=== PATIENT | female | born 1960 | race Caucasian/White ===

== ENCOUNTER 2018-07-30 17:50 | Emergency (ER) | payer BC ==
[~2018-07-30 17:50] MED LIST: ORAL BIRTH CONTROL
--- NOTE | 2018-07-30 18:02 | ER Report ---
History and Physical Time Seen By MD: 18:02 Allergies: Coded Allergies: Penicillins (Verified Allergy, Unknown, RASH, 07/29/14) Home Meds Reported Medications [Oral Control] No Conflict Check 07/29/14 Hx Smoking: No Depart Departure Condition: Stable Disposition: HOME OR SELF-CARE LANE MALIN CONVEYOR SYSTEM OPERATOR-BC Jul 30, 2018 18:02
--- NOTE | 2018-07-30 18:07 | ER Report ---
History and Physical Time Seen By MD: 18:07 HPI/ROS CHIEF COMPLAINT: Left groin pain HISTORY OF PRESENT ILLNESS: This is a 57-year-old female who presents to the emergency department for left groin pain. Patient states that around 9:00 this morning while sitting at a desk, she developed some left groin pain. Patient states the pain has increased in intensity today, it is now radiating a little bit to her back. It is more pinpoint in the groin, she also has some mild numbness to the front of her left quadricep. She denies fevers or chills. No nausea or vomiting. No hip pain, no knee pain no recent illnesses. No chest pain or short of breath REVIEW OF SYSTEMS: Respiratory: No cough, no dyspnea. Cardiovascular: No chest pain, no palpitations. Gastrointestinal: No vomiting, no abdominal pain. Musculoskeletal: As above. Allergies: Coded Allergies: Penicillins (Verified Allergy, Unknown, RASH, 07/30/18) Home Meds Active Scripts Cyclobenzaprine Hcl (CYCLOBENZAPRINE HCL) 10 Mg Tablet, 5-10 MG PO TID PRN for MUSCLE SPASMS, #9 TAB Prov:LANE MALIN HYDROLOGIST-BC 07/30/18 Discontinued Reported Medications [Oral Control] No Conflict Check 07/29/14 Past Medical/Surgical History The patient has a past medical and surgical history of umbilical hernia, scoliosis, post menopause. morbidly obese. Reviewed Nurses Notes: Yes Hx Smoking: No Constitutional Vital Sign - Last 24 Hours 07/30/18 07/30/18 07/30/18 07/30/18 18:07 18:07 18:20 18:30 Temp 98.0 Pulse 82 93 Resp 14 B/P (MAP) 128/76 (93) 128/78 110/62 (78) Pulse Ox 93 92 O2 Delivery Room Air 07/30/18 07/30/18 07/30/18 07/30/18 18:35 19:00 19:05 19:20 Pulse 86 80 B/P (MAP) 125/65 (85) Pulse Ox 91 90 91 07/30/18 19:30 B/P (MAP) 127/65 (85) Physical Exam General Appearance: The patient is alert, has no immediate need for airway protection and no current signs of toxicity. Eyes: Pupils equal and round no injection. Respiratory: Chest is non tender, lungs are clear to auscultation. Cardiac: regular rate and rhythm. Gastrointestinal: Abdomen is obese, soft and non tender, no masses, bowel sounds normal. Musculoskeletal: Neck: Neck is supple and non tender. Extremities painful left groin with palpation, no deformities, no crepitus no palpable hernia. No discomfort with the right leg raise. Increased discomfort and weakness to the left leg with straight leg raise. No erythema or heat radiating from the left hip. Skin: No rashes or lesions. DIFFERENTIAL DIAGNOSIS: After history and physical exam differential diagnosis was considered for septic arthritis, bursitis, hernia, urinary tract infection, DVT, muscle strain, radiculopathy. Medical Decision Making Data Points Result Diagram: 07/30/18 1831 07/30/18 1831 Laboratory Hematology Test 07/30/18 18:31 07/30/18 18:51 Red Blood Count 4.88 M/uL (4.17-5.56) Mean Corpuscular Volume 84.0 fL (80.0-96.0) Mean Corpuscular Hemoglobin 28.1 pg (26.0-33.0) Mean Corpuscular Hemoglobin Concent 33.4 g/dL (32.0-36.0) Red Cell Distribution Width 14.2 % (11.5-14.5) Mean Platelet Volume 7.1 fL (7.2-11.1) Neutrophils (%) (Auto) 67.0 % (39.4-72.5) Lymphocytes (%) (Auto) 24.6 % (17.6-49.6) Monocytes (%) (Auto) 7.1 % (4.1-12.4) Eosinophils (%) (Auto) 0.8 % (0.4-6.7) Basophils (%) (Auto) 0.5 % (0.3-1.4) Nucleated RBC Relative Count (auto) 0.0 /100WBC Neutrophils # (Auto) 6.5 K/uL (2.0-7.4) Lymphocytes # (Auto) 2.4 K/uL (1.3-3.6) Monocytes # (Auto) 0.7 K/uL (0.3-1.0) Eosinophils # (Auto) 0.1 K/uL (0.0-0.5) Basophils # (Auto) 0.0 K/uL (0.0-0.1) Nucleated RBC Absolute Count (auto) 0.00 K/uL Sodium Level 138 mmol/L (137-145) Potassium Level 3.8 mmol/L (3.5-5.0) Chloride Level 110 mmol/L (98-107) Carbon Dioxide Level 24 mmol/L (22-31) Blood Urea Nitrogen 13 mg/dl (7-18) Creatinine 0.60 mg/dl (0.52-1.04) Glomerular Filtration Rate Calc > 60.0 Random Glucose 90 mg/dl (75-110) Calcium Level 9.1 mg/dl (8.4-10.2) Total Bilirubin 0.4 mg/dl (0.2-1.3) Aspartate Amino Transf (AST/SGOT) 25 U/L (0-35) Alanine Aminotransferase (ALT/SGPT) 28 U/L (0-56) Alkaline Phosphatase 89 U/L (0-126) C-Reactive Protein 0.8 mg/dl (<1.0) Total Protein 7.3 g/dl (6.3-8.2) Albumin 3.9 g/dl (3.5-5.0) Urine Color Straw Urine Clarity Clear Urine pH 5.0 pH (4.8-9.5) Urine Specific [place] 1.006 Urine Protein Negative mg/dL (NEGATIVE) Urine Glucose (UA) Negative mg/dL (NEGATIVE) Urine Ketones Trace mg/dL (NEGATIVE) Urine Blood Moderate (NEGATIVE) Urine Nitrite Negative (NEGATIVE) Urine Bilirubin Negative (NEGATIVE) Urine Urobilinogen Negative mg/dL (0.2-1.9) Urine Leukocyte Esterase Negative (NEGATIVE) Urine RBC 1 /HPF (0-2/HPF) Urine WBC 1 /HPF (0-5/HPF) Urine Squamous Epithelial Cells None /LPF (</=FEW) Urine Bacteria Few /HPF (NONE-FEW) Urine Mucus None /HPF (NONE-FEW) Chemistry Test 07/30/18 18:31 07/30/18 18:51 White Blood Count 9.8 k/uL (4.5-11.0) Red Blood Count 4.88 M/uL (4.17-5.56) Hemoglobin 13.7 g/dL (12.0-16.0) Hematocrit 41.0 % (34.0-47.0) Mean Corpuscular Volume 84.0 fL (80.0-96.0) Mean Corpuscular Hemoglobin 28.1 pg (26.0-33.0) Mean Corpuscular Hemoglobin Concent 33.4 g/dL (32.0-36.0) Red Cell Distribution Width 14.2 % (11.5-14.5) Platelet Count 313 K/uL (150-450) Mean Platelet Volume 7.1 fL (7.2-11.1) Neutrophils (%) (Auto) 67.0 % (39.4-72.5) Lymphocytes (%) (Auto) 24.6 % (17.6-49.6) Monocytes (%) (Auto) 7.1 % (4.1-12.4) Eosinophils (%) (Auto) 0.8 % (0.4-6.7) Basophils (%) (Auto) 0.5 % (0.3-1.4) Nucleated RBC Relative Count (auto) 0.0 /100WBC Neutrophils # (Auto) 6.5 K/uL (2.0-7.4) Lymphocytes # (Auto) 2.4 K/uL (1.3-3.6) Monocytes # (Auto) 0.7 K/uL (0.3-1.0) Eosinophils # (Auto) 0.1 K/uL (0.0-0.5) Basophils # (Auto) 0.0 K/uL (0.0-0.1) Nucleated RBC Absolute Count (auto) 0.00 K/uL Glomerular Filtration Rate Calc > 60.0 Calcium Level 9.1 mg/dl (8.4-10.2) Total Bilirubin 0.4 mg/dl (0.2-1.3) Aspartate Amino Transf (AST/SGOT) 25 U/L (0-35) Alanine Aminotransferase (ALT/SGPT) 28 U/L (0-56) Alkaline Phosphatase 89 U/L (0-126) C-Reactive Protein 0.8 mg/dl (<1.0) Total Protein 7.3 g/dl (6.3-8.2) Albumin 3.9 g/dl (3.5-5.0) Urine Color Straw Urine Clarity Clear Urine pH 5.0 pH (4.8-9.5) Urine Specific [place] 1.006 Urine Protein Negative mg/dL (NEGATIVE) Urine Glucose (UA) Negative mg/dL (NEGATIVE) Urine Ketones Trace mg/dL (NEGATIVE) Urine Blood Moderate (NEGATIVE) Urine Nitrite Negative (NEGATIVE) Urine Bilirubin Negative (NEGATIVE) Urine Urobilinogen Negative mg/dL (0.2-1.9) Urine Leukocyte Esterase Negative (NEGATIVE) Urine RBC 1 /HPF (0-2/HPF) Urine WBC 1 /HPF (0-5/HPF) Urine Squamous Epithelial Cells None /LPF (</=FEW) Urine Bacteria Few /HPF (NONE-FEW) Urine Mucus None /HPF (NONE-FEW) Urinalysis Test 07/30/18 18:51 Urine Color Straw Urine Clarity Clear Urine pH 5.0 pH (4.8-9.5) Urine Specific [place] 1.006 Urine Protein Negative mg/dL (NEGATIVE) Urine Glucose (UA) Negative mg/dL (NEGATIVE) Urine Ketones Trace mg/dL (NEGATIVE) Urine Blood Moderate (NEGATIVE) Urine Nitrite Negative (NEGATIVE) Urine Bilirubin Negative (NEGATIVE) Urine Urobilinogen Negative mg/dL (0.2-1.9) Urine Leukocyte Esterase Negative (NEGATIVE) Urine RBC 1 /HPF (0-2/HPF) Urine WBC 1 /HPF (0-5/HPF) Urine Squamous Epithelial Cells None /LPF (</=FEW) Urine Bacteria Few /HPF (NONE-FEW) Urine Mucus None /HPF (NONE-FEW) EKG/Imaging Imaging Location: [facility] Patient: Meeta Newton : 1960 Visit/Account:[id number] Date of Sevice: 07/30/2018 INDICATION: left groin pain. DATE: 07/30/2018 6:53 PM. TECHNIQUE: HIP LEFT COMPARISON: None FINDINGS: Mild to moderate degenerative findings at the hips and pubic symphysis. No evidence of fracture or dislocation. IMPRESSION: No acute osseous abnormality. Report Dictated By: Grazyna Zarate MD at 07/30/2018 6:53 PM Report E-Signed By: Grazyna Zarate MD at 07/30/2018 6:56 PM WSN:[email or web address] ED Course/Re-evaluation ED Course The patient was admitted to room. A history and physical were obtained. Differential diagnoses were considered. A CBC, CRP and UA were collected. Lab studies unremarkable, negative CRP. Negative left hip x-ray. An ultrasound of the left lower extremity was obtained. Patient was given 10 mg by mouth Flexeril. Negative DVT ultrasound. Results were reviewed with the patient. I did tell her this is likely a groin strain, I did recommend following up with her primary care provider next week for reevaluation. Patient was given Flexeril for muscular pain. Also instructed to take ibuprofen Tylenol as needed for pain. Return to ER for any other concerns or worsening symptoms. Patient exposed understanding was discharged home. Decision to Disposition Date: Jul 30, 2018 Decision to Disposition Time: 20:57 Depart Departure Latest Vital Signs Vital Signs Date Time Temp Pulse Resp B/P (MAP) Pulse Ox O2 Delivery O2 Flow Rate FiO2 07/30/18 19:30 127/65 (85) 07/30/18 19:20 80 91 07/30/18 18:07 98.0 14 Room Air Impression: Primary Impression: Left groin pain Condition: Improved Disposition: HOME OR SELF-CARE New Scripts Cyclobenzaprine Hcl (CYCLOBENZAPRINE HCL) 10 Mg Tablet 5-10 MG PO TID PRN for MUSCLE SPASMS, #9 TAB Prov: LANE MALIN-BC 07/30/18 Patient Instructions: Groin Pain (ED) Additional Instructions: No concerning findings on blood work. No evidence of a clot on ultrasound. This could be a mild strain. Take Ibuprofen or Tylenol as needed for pain. Take Flexeril for severe pain. Get plenty of rest. Drink plenty of water. Follow up with your PCP next week for reevaluation. Return to the ED for any other concerns or worsening symptoms. LANE MALIN-BC Jul 30, 2018 18:07
[2018-07-30 18:43] LABS: PLATELET COUNT, AUTOMATED 313 K/uL (150-450)
--- NOTE | 2018-07-30 19:01 | RADIOLOGY IMAGING REPORT ---
FACILITY: [facility] PATIENT NAME: Meeta Newton : 1960 MR: [id number] V: [id number] EXAM DATE: ORDERING PHYSICIAN: LANE MALIN TECHNOLOGIST: Location: [facility] Patient: Meeta Newton : 1960 Visit/Account:[id number] Date of Sevice: 07/30/2018 INDICATION: left groin pain. DATE: 07/30/2018 6:53 PM. TECHNIQUE: HIP LEFT COMPARISON: None FINDINGS: Mild to moderate degenerative findings at the hips and pubic symphysis. No evidence of fra cture or dislocation. IMPRESSION: No acute osseous abnormality. Report Dictated By: Grazyna Zarate MD at 07/30/2018 6:53 PM Report E-Signed By: Grazyna Zarate MD at 07/30/2018 6:56 PM WSN:[id number]
[2018-07-30] MEDS ORDERED: CYCLOBENZAPRINE HCL 10 MG TAB PO ONE (19:25)
[2018-07-30] MEDS ORDERED: CYCL10TA29 PO (20:27)
[2018-07-30 20:30] VITALS: BP 115/64
[2018-07-30] MEDS ORDERED: CYCLOBENZAPRINE HCL 10 MG TH PO ONE (20:30)
--- NOTE | 2018-07-30 20:53 | RADIOLOGY IMAGING REPORT ---
FACILITY: [facility] [place] PATIENT NAME: Meeta Newton : 1960 MR: [id number] V: [id number] EXAM DATE: ORDERING PHYSICIAN: LANE MALIN TECHNOLOGIST: Location: [facility] [place] Patient: Meeta Newton : 1960 Visit/Account:[id number] Date of Sevice: 07/30/2018 Venous Doppler ultrasound left lower extremity Indication: Left hip and leg pain.. Comparison: None Available Findings: Duplex Doppler and color flow imaging was performed. The common femoral, femoral, and popl iteal veins are all patent and compressible with normal Doppler wave forms. There are normal respons es to augmentation. The posterior tibial and peroneal veins are patent in the calf. The proximal greater saphenous vein is also normal. Subcutaneous tissues are unremarkable. IMPRESSION: 1. No evidence of deep venous thrombosis of the left lower extremity. Report Dictated By: Rudy Bosch at 07/30/2018 8:48 PM Report E-Signed By: Rudy Bosch at 07/30/2018 8:49 PM WSN:[id number]
== END 2018-07-30 21:06 | disposition home or self-care (01) ==
LOC: ER 18:10
DX: R10.32 Left lower quadrant pain (principal)
CPT/HCPCS: 36415; 81001; 82040; 82247; 82310; 82374; 82435; 82565; 82947; 84075; 84132; 84155; 84295; 84450; 84460; 84520; 85025; 86140; 99284

== ENCOUNTER → 2018-07-31 | Outpatient (CLI) | payer BC ==
[~2018-07-31] MED LIST changes: +CYCL10TA29 PO; +IOPAMIDOL 76% 50 ML INFUS BTL 100 ML ONE
--- NOTE | 2018-07-31 17:32 | RADIOLOGY IMAGING REPORT ---
FACILITY: [facility] [place] PATIENT NAME: Meeta Newton : 1960 MR: [id number] V: [id number] EXAM DATE: ORDERING PHYSICIAN: JUAN MON TECHNOLOGIST: Location: [facility] Patient: Meeta Newton : 1960 Visit/Account:[id number] Date of Sevice: 07/31/2018 COMPUTED TOMOGRAPHY OF THE Abdomen and Pelvis with CONTRAST INDICATION: Left lower quadrant pain. TECHNIQUE: Contiguous axial 3.[address] images were obtained through the abdomen and pelvis after 90 m L Isovue 37. Coronal and sagittal reformatted images were submitted. COMPARISON: None. FINDINGS: Lung bases: Clear Liver and hepatic vasculature: The liver is enlarged measuring 20 cm craniocaudal. The tip of the r ight lobe is blunted. No ascites. No apparent focal lesion. Gallbladder and bile ducts: The gallbladder is filled with peripherally calcified gallstones. There are no definite findings of cholecystitis. The stones extend into the gallbladder neck and potentia lly into the common bile duct. Spleen: Normal Pancreas: Mild pancreatic atrophy. No pancreatic duct dilation or findings of pancreatitis. Adrenals: Normal Kidneys, ureters and bladder: No hydronephrosis or obstruction. No stones. Retroperitoneum and aorta: Normal caliber aorta. GI tract, mesentery and peritoneum: Normal appendix. There are a few scattered colonic diverticula w ithout findings of diverticulitis. Equivocal thickening of the gastric wall involving the gastric diya dy, predominantly the greater curvature, could be from incomplete filling/distention but is nonspecif ic by CT. There is faint haziness in the mid mesentery with a few enlarged mesenteric lymph nodes. This is demonstrated on for example axial image 60 of series 2. Uterus and adnexa: Unremarkable uterus. 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 Mild to moderate leftward curv ature of the lumbar spine with associated multilevel degenerative findings. No acute osseous abnorma lity. Moderate sized ventral hernia left of midline on series 2 image 82 extends through an approxim ately 3 cm fascial defect. IMPRESSION: 1. Subtle haziness within the mesentery left of midline in the mid abdomen with enlargement of a few mesenteric lymph nodes is nonspecific and may be idiopathic but can be seen with mesenteric pannicul itis. 2. The gallbladder is filled with gallstones, but there are no overt findings of cholecystitis. Sto micki extend into the gallbladder neck potentially into the common bile duct. There is no intrahepatic biliary duct dilation or pancreatic duct dilation. 3. Suggestion of wall thickening involving the stomach may be due to contraction or incomplete filli ng. If clinically warranted, this could be evaluated endoscopically, but is probably incidental. 4. Moderate-sized fat-containing ventral hernia extending through a 3 cm fascial defect. 5. Additional chronic findings as above. Results were called to Dr. JUAN MON at 07/31/2018 5:23 PM. One of the following dose optimization techniques was utilized in the performance of this exam: Autom ated exposure control; adjustment of the mA and/or kV according to the patient's size; or use of an i terative reconstruction technique. Specific details can be referenced in the facility's radiology C T exam operational policy. Report Dictated By: Grazyna Zarate MD at 07/31/2018 5:08 PM Report E-Signed By: Grazyna Zarate MD at 07/31/2018 5:28 PM WSN:[email or web address]
== END ==
LOC: CT 15:44
PROVIDERS: ATTEND Physician Assistant
DX: K80.20 Calculus of gallbladder without cholecystitis without obstruction (principal); K40.90 Unilateral inguinal hernia, without obstruction or gangrene, not specified as recurrent
CPT/HCPCS: 74177; Q9967